=== PATIENT | female | born 1940 | race African-American/Black ===

== ENCOUNTER 2022-01-11 21:04 | Inpatient (IN) | payer OTHER, BC ==
[~2022-01-11] VITALS: Ht 167.6 cm; Wt 79.8 kg
[2022-01-11] MEDS ORDERED: MORPHINE SULFATE 4 MG/ML CPJ (NOT FOR IM USE) IV STA (23:14)
[2022-01-11] MEDS ORDERED: ONDANSETRON HCL 4MG/2ML INJ IV STA (23:14)
[2022-01-11] MEDS ORDERED: SODIUM CHLORIDE 0.9% 1,000 ML IV ONE (23:15)
[2022-01-11 23:52] LABS: HEMATOCRIT. 45.1 % (36.0-48.0); HEMOGLOBIN. 14.8 g/dL (12.0-16.0); MEAN CORPUSCULAR HEMOGLOBIN 28.1 pg (28.0-32.0); MEAN CORPUSCULAR VOLUME 85.5 fL (81.0-99.0); MEAN PLATELET VOLUME 9.3 fl (7.4-10.4); PLATELET 279 x1000/uL (130-400); RED BLOOD CELL COUNT 5.27 mill/uL (4.2-5.4); RED CELL DISTRIBUTION WIDTH 14.9 % (11.6-14.6)
[2022-01-12 00:02] LABS: CHLORIDE 96 mEq/L (98-107)
[2022-01-12 01:00] LABS: CLARITY URINE CLEAR (CLEAR); COLOR URINE YELLOW (YELLOW); KETONES URINE 4+ (NEGATIVE); LEUKOCYTE ESTERASE URINE NEGATIVE (NEGATIVE); NITRITE URINE NEGATIVE (NEGATIVE); OCCULT BLOOD URINE TRACE (NEGATIVE); PH URINE 5.5 (4.5-8.0); PROTEIN URINE TRACE (NEGATIVE); SPECIFIC GRAVITY URINE 1.028 (1.005-1.030); UROBILINOGEN URINE 0.2 E.U./dL (0.2-1.0)
[2022-01-12 01:03] LABS: PLATELET ESTIMATE NORMAL
[2022-01-12] MEDS ORDERED: PIPERACILLIN/TAZ 3.375G PREMIX 50 ML IV NR (02:45)
[2022-01-12] MEDS ORDERED: POTASSIUM CHLORIDE INJ 40 MEQ in DEXT 5% WATER 250 ML IV ONE (02:45)
[2022-01-12] MEDS: KCL 20MEQ/100ML X 2 FOR TOTAL KCL 40MEQ/200ML IV SCH ×2 (03:00→05:00)
[2022-01-12] MEDS ORDERED: MORPHINE SULFATE 4 MG/ML CPJ (NOT FOR IM USE) IV ONE (05:15)
[2022-01-12 10:30] VITALS: BP_SYST 180; BP_SYST 185; BP_DIAS 94
[2022-01-12] MEDS ORDERED: LOSA100T3 PO (11:07)
[2022-01-12] MEDS ORDERED: ONDANSETRON HCL 4MG/2ML INJ IV PRN (11:15)
[2022-01-12] MEDS ORDERED: AMLO10TA4 PO (11:15)
[2022-01-12] MEDS ORDERED: ACETAMINOPHEN 325MG TABLET PO PRN ×2 (11:15)
[2022-01-12] MEDS ORDERED: LORAZEPAM 0.5MG TABLET PO PRN (11:15)
[2022-01-12] MEDS ORDERED: LINA5TAB PO (11:17)
[2022-01-12 11:53] VITALS: BP 167/78
[2022-01-12] MEDS: ASPIRIN 81MG TABLET PO SCH (12:05)
[2022-01-12] MEDS: CLONIDINE 0.1MG TABLET PO PRN (12:06)
[2022-01-12] MEDS: AMLODIPINE 5MG TABLET PO SCH (12:06)
[2022-01-12] MEDS: MORPHINE SULFATE 2 MG/ML CPJ (NOT FOR IM USE) IV PRN ×3 (12:07→20:19)
[2022-01-12] MEDS: HYDROCODONE/ACETAMINOPHEN 5/325MG TABLET PO PRN (12:30)
[2022-01-12] MEDS: BLOOD SUGAR DIAGNOSTIC STRIP TEST SCH ×3 (12:52→20:19)
[2022-01-12] MEDS: INSULIN LISPRO 100 UNITS/ML SUBCUT SCH ×3 (13:44→20:28)
[2022-01-12] MEDS: PIPERACILLIN/TAZOBACTAM 3.375 G in DEXTROSE 5% WATER 50 ML IV SCH ×2 (15:33→19:53)
[2022-01-12] MEDS: SODIUM CHLORIDE 0.9% 1,000 ML IV SCH ×2 (15:33→20:28)
[2022-01-12 16:00] VITALS: BP 133/82
[2022-01-12] MEDS ORDERED: OMEG100017 PO (17:01)
[2022-01-12] MEDS ORDERED: VITA250012 PO (17:04)
[2022-01-12 20:00] VITALS: BP 150/84
[2022-01-12] MEDS ORDERED: NALOXONE HCL 0.4MG/ML VIAL IV PRN (22:45)
[2022-01-13] VITALS: BP 135/84
[2022-01-13] MEDS: PIPERACILLIN/TAZOBACTAM 3.375 G in DEXTROSE 5% WATER 50 ML IV SCH ×3 (02:17→21:25)
[2022-01-13] MEDS: MORPHINE SULFATE 2 MG/ML CPJ (NOT FOR IM USE) IV PRN ×2 (02:17→11:56)
[2022-01-13 04:00] VITALS: BP 157/90
[2022-01-13] MEDS: BLOOD SUGAR DIAGNOSTIC STRIP TEST SCH ×4 (05:20→21:15)
[2022-01-13] MEDS: INSULIN LISPRO 100 UNITS/ML SUBCUT SCH ×4 (05:26→21:29)
[2022-01-13 07:28] LABS: HEMATOCRIT. 45.2 % (36.0-48.0); HEMOGLOBIN. 14.9 g/dL (12.0-16.0); MEAN CORPUSCULAR VOLUME 85.1 fL (81.0-99.0); MEAN PLATELET VOLUME 10.3 fl (7.4-10.4); PLATELET 309 x1000/uL (130-400); RED BLOOD CELL COUNT 5.31 mill/uL (4.2-5.4); RED CELL DISTRIBUTION WIDTH 15.7 % (11.6-14.6)
[2022-01-13 08:21] VITALS: BP 148/87
[2022-01-13] MEDS: AMLODIPINE 5MG TABLET PO SCH (08:23)
[2022-01-13] MEDS: HYDROCODONE/ACETAMINOPHEN 5/325MG TABLET PO PRN (08:23)
[2022-01-13] MEDS: ASPIRIN 81MG TABLET PO SCH (08:23)
[2022-01-13 09:27] LABS: CHLORIDE 97 mEq/L (98-107)
[2022-01-13 10:16] LABS: PLATELET ESTIMATE NORMAL
[2022-01-13] MEDS ORDERED: POTASSIUM CHLORIDE 20MEQ TABLET SR PO NR (10:30)
[2022-01-13 12:30] VITALS: BP 142/88
[2022-01-13 12:45] LABS: PHOSPHORUS 2.2 mg/dL (2.5-4.9)
[2022-01-13] MEDS: HYDROCODONE/ACETAMINOPHEN 10/325MG TABLET PO PRN ×2 (14:50→23:17)
[2022-01-13] MEDS: SODIUM CHLORIDE 0.9% 1,000 ML IV SCH (14:51)
[2022-01-13 16:03] VITALS: BP 148/79
[2022-01-13] MEDS ORDERED: MAGNESIUM 4 G PREMIX 100 ML IV NR (17:00)
[2022-01-13 18:49] LABS: CARCINO EMBRYONIC ANTIGEN 2.3 ng/ml
[2022-01-13 20:00] VITALS: BP 189/72
[2022-01-13 20:44] LABS: TOTAL IRON BINDING CAPACITY 326 ug/dL (250-450)
[2022-01-13] MEDS: CLONIDINE 0.1MG TABLET PO PRN (21:25)
[2022-01-14] VITALS: BP 144/78
[2022-01-14] MEDS: PIPERACILLIN/TAZOBACTAM 3.375 G in DEXTROSE 5% WATER 50 ML IV SCH ×3 (02:14→21:09)
[2022-01-14] MEDS: HYDROCODONE/ACETAMINOPHEN 10/325MG TABLET PO PRN ×3 (03:35→19:28)
[2022-01-14 04:00] VITALS: BP 150/81
[2022-01-14] MEDS: SODIUM CHLORIDE 0.9% 1,000 ML IV SCH (05:10)
[2022-01-14] MEDS: BLOOD SUGAR DIAGNOSTIC STRIP TEST SCH ×4 (05:23→21:00)
[2022-01-14] MEDS: INSULIN LISPRO 100 UNITS/ML SUBCUT SCH ×4 (05:50→21:12)
[2022-01-14 07:43] LABS: HEMOGLOBIN. 14.9 g/dL (12.0-16.0); MEAN CORPUSCULAR HEMOGLOBIN 27.9 pg (28.0-32.0); MEAN CORPUSCULAR VOLUME 85.8 fL (81.0-99.0); PLATELET 267 x1000/uL (130-400); RED BLOOD CELL COUNT 5.36 mill/uL (4.2-5.4)
[2022-01-14 08:29] VITALS: BP 139/93
[2022-01-14] MEDS: ASPIRIN 81MG TABLET PO SCH (09:02)
[2022-01-14] MEDS: AMLODIPINE 5MG TABLET PO SCH (09:02)
[2022-01-14] MEDS ORDERED: LIDOCAINE HCL/PF 1% 10 MG/ML 5ML VIAL ONE (09:22)
[2022-01-14] MEDS ORDERED: TRAMADOL 50MG TABLET PO PRN (10:00)
[2022-01-14] MEDS ORDERED: PROCHLORPERAZINE 10MG/2ML VIAL IV PRN (10:00)
[2022-01-14 10:37] LABS: CHLORIDE 97 mEq/L (98-107)
[2022-01-14 12:00] VITALS: BP 166/96
[2022-01-14] MEDS ORDERED: POTASSIUM PHOS,M-BASIC-D-BASIC 20 MMOL in DEXT 5% WATER 243.3333 ML IV NR (13:00)
[2022-01-14] MEDS: IRON SUCROSE COMPLEX 100 MG/5 ML ML IV SCH (13:02)
[2022-01-14] MEDS: PANTOPRAZOLE SODIUM 40 MG/VIAL IV SCH (13:02)
[2022-01-14] MEDS: CLONIDINE 0.1MG TABLET PO PRN (14:49)
[2022-01-14 16:30] VITALS: BP 155/84
[2022-01-14] MEDS: POTASSIUM CHLORIDE INJ 40 MEQ in SODIUM CHLORIDE 0.9% 1,000 ML IV SCH (18:18)
[2022-01-14 20:00] VITALS: BP 155/88
[2022-01-15] VITALS: BP 168/75
[2022-01-15 04:00] VITALS: BP 155/60
[2022-01-15 04:12] LABS: OVA & PARASITE EXAM Final report (.)
[2022-01-15] MEDS: BLOOD SUGAR DIAGNOSTIC STRIP TEST SCH ×4 (05:15→20:56)
[2022-01-15] MEDS: PIPERACILLIN/TAZOBACTAM 3.375 G in DEXTROSE 5% WATER 50 ML IV SCH ×3 (05:15→18:51)
[2022-01-15] MEDS: POTASSIUM CHLORIDE INJ 40 MEQ in SODIUM CHLORIDE 0.9% 1,000 ML IV SCH ×2 (05:15→14:58)
[2022-01-15] MEDS: INSULIN LISPRO 100 UNITS/ML SUBCUT SCH ×4 (05:50→21:00)
[2022-01-15 07:05] LABS: HEMATOCRIT. 41.3 % (36.0-48.0); HEMOGLOBIN. 13.6 g/dL (12.0-16.0); MEAN CORPUSCULAR HEMOGLOBIN 28.6 pg (28.0-32.0); MEAN CORPUSCULAR VOLUME 86.7 fL (81.0-99.0); MEAN PLATELET VOLUME 10.1 fl (7.4-10.4); PLATELET 254 x1000/uL (130-400); RED BLOOD CELL COUNT 4.76 mill/uL (4.2-5.4); RED CELL DISTRIBUTION WIDTH 15.6 % (11.6-14.6)
[2022-01-15 07:13] LABS: CHLORIDE 99 mEq/L (98-107)
[2022-01-15 07:24] LABS: PHOSPHORUS 2.1 mg/dL (2.5-4.9)
[2022-01-15 08:04] VITALS: BP 168/83
[2022-01-15] MEDS: PANTOPRAZOLE SODIUM 40 MG/VIAL IV SCH (09:02)
[2022-01-15] MEDS: AMLODIPINE 5MG TABLET PO SCH (09:02)
[2022-01-15] MEDS: ASPIRIN 81MG TABLET PO SCH (09:02)
[2022-01-15] MEDS: HYDROCODONE/ACETAMINOPHEN 10/325MG TABLET PO PRN (09:11)
[2022-01-15 10:41] LABS: HEMATOCRIT. 42.5 % (36.0-48.0); HEMOGLOBIN. 13.8 g/dL (12.0-16.0); MEAN CORPUSCULAR HEMOGLOBIN 27.8 pg (28.0-32.0); MEAN CORPUSCULAR VOLUME 85.7 fL (81.0-99.0); MEAN PLATELET VOLUME 9.8 fl (7.4-10.4); PLATELET 235 x1000/uL (130-400); RED BLOOD CELL COUNT 4.96 mill/uL (4.2-5.4); RED CELL DISTRIBUTION WIDTH 15.2 % (11.6-14.6)
[2022-01-15 12:00] VITALS: BP 188/102
[2022-01-15] MEDS: CLONIDINE 0.1MG TABLET PO PRN (12:02)
[2022-01-15] MEDS: IRON SUCROSE COMPLEX 100 MG/5 ML ML IV SCH (12:03)
[2022-01-15 13:40] LABS: PLATELET ESTIMATE NORMAL
[2022-01-15] MEDS ORDERED: AMLODIPINE 5MG TABLET PO NR (13:45)
[2022-01-15 13:55] LABS: PLATELET ESTIMATE NORMAL
[2022-01-15 14:53] LABS: PLATELET ESTIMATE NORMAL
[2022-01-15] MEDS ORDERED: POTASSIUM PHOS,M-BASIC-D-BASIC 15 MMOL in DEXT 5% WATER 245 ML IV NR (15:00)
[2022-01-15 16:00] VITALS: BP 160/80
[2022-01-15 20:00] VITALS: BP 147/79
[2022-01-15] MEDS: HYDROMORPHONE HCL/PF 2MG/ML CPJ IV PRN (21:29)
[2022-01-16] VITALS: BP 152/89
[2022-01-16] MEDS: PIPERACILLIN/TAZOBACTAM 3.375 G in DEXTROSE 5% WATER 50 ML IV SCH ×3 (03:24→18:56)
[2022-01-16 04:00] VITALS: BP 149/97
[2022-01-16] MEDS: BLOOD SUGAR DIAGNOSTIC STRIP TEST SCH ×4 (05:36→21:00)
[2022-01-16] MEDS: INSULIN LISPRO 100 UNITS/ML SUBCUT SCH ×4 (05:36→21:46)
[2022-01-16 07:44] LABS: HEMATOCRIT. 41.1 % (36.0-48.0); HEMOGLOBIN. 13.2 g/dL (12.0-16.0); MEAN CORPUSCULAR VOLUME 87.2 fL (81.0-99.0); MEAN PLATELET VOLUME 9.8 fl (7.4-10.4); PLATELET 238 x1000/uL (130-400); RED BLOOD CELL COUNT 4.72 mill/uL (4.2-5.4); RED CELL DISTRIBUTION WIDTH 15.7 % (11.6-14.6)
[2022-01-16 08:00] VITALS: BP 170/81
[2022-01-16] MEDS: CLONIDINE 0.1MG TABLET PO PRN (08:55)
[2022-01-16] MEDS: POTASSIUM CHLORIDE INJ 40 MEQ in SODIUM CHLORIDE 0.9% 1,000 ML IV SCH (08:55)
[2022-01-16] MEDS: AMLODIPINE 10MG TABLET PO SCH (08:55)
[2022-01-16] MEDS: ASPIRIN 81MG TABLET PO SCH (08:55)
[2022-01-16] MEDS: HYDROCODONE/ACETAMINOPHEN 10/325MG TABLET PO PRN ×2 (08:56→13:39)
[2022-01-16] MEDS: PANTOPRAZOLE SODIUM 40 MG/VIAL IV SCH (08:56)
[2022-01-16 09:35] LABS: CHLORIDE 101 mEq/L (98-107)
[2022-01-16 09:38] LABS: PHOSPHORUS 2.1 mg/dL (2.5-4.9)
[2022-01-16 10:52] LABS: PLATELET ESTIMATE NORMAL
[2022-01-16] MEDS: IRON SUCROSE COMPLEX 100 MG/5 ML ML IV SCH (11:28)
[2022-01-16 12:00] VITALS: BP 158/85
[2022-01-16 16:00] VITALS: BP 130/79
[2022-01-16 20:00] VITALS: BP 147/85
[2022-01-17] VITALS: BP 130/76
[2022-01-17] MEDS: HYDROMORPHONE HCL/PF 2MG/ML CPJ IV PRN (01:42)
[2022-01-17] MEDS: PIPERACILLIN/TAZOBACTAM 3.375 G in DEXTROSE 5% WATER 50 ML IV SCH ×2 (03:15→13:38)
[2022-01-17] MEDS ORDERED: HALOPERIDOL LACTATE 5MG/ML VIAL IM PRN (03:45)
[2022-01-17 04:00] VITALS: BP 140/79
[2022-01-17 06:52] LABS: HEMATOCRIT. 40.3 % (36.0-48.0); HEMOGLOBIN. 12.9 g/dL (12.0-16.0); MEAN CORPUSCULAR HEMOGLOBIN 27.5 pg (28.0-32.0); MEAN CORPUSCULAR VOLUME 85.8 fL (81.0-99.0); MEAN PLATELET VOLUME 9.8 fl (7.4-10.4); PLATELET 244 x1000/uL (130-400); RED CELL DISTRIBUTION WIDTH 15.6 % (11.6-14.6)
[2022-01-17] MEDS: BLOOD SUGAR DIAGNOSTIC STRIP TEST SCH ×4 (07:10→21:53)
[2022-01-17] MEDS ORDERED: FERROUS SULFATE 325MG TABLET PO SCH (07:40)
[2022-01-17 08:27] VITALS: BP 142/52
[2022-01-17] MEDS ORDERED: LIDOCAINE HCL/PF 1% 10 MG/ML 5ML VIAL ONE ×2 (08:58→11:12)
[2022-01-17] MEDS: AMLODIPINE 10MG TABLET PO SCH (09:00)
[2022-01-17] MEDS: ASPIRIN 81MG TABLET PO SCH (09:00)
[2022-01-17] MEDS: INSULIN LISPRO 100 UNITS/ML SUBCUT SCH ×4 (09:30→22:05)
[2022-01-17] MEDS: IRON SUCROSE COMPLEX 100 MG/5 ML ML IV SCH (11:00)
[2022-01-17 11:06] LABS: CHLORIDE 102 mEq/L (98-107)
[2022-01-17 11:16] LABS: PHOSPHORUS 1.8 mg/dL (2.5-4.9)
[2022-01-17 11:34] LABS: PLATELET ESTIMATE NORMAL
[2022-01-17] MEDS ORDERED: IRON SUCROSE COMPLEX 100 MG/5 ML ML IV SCH (13:16)
[2022-01-17 13:37] VITALS: BP 133/76
[2022-01-17] MEDS: PANTOPRAZOLE SODIUM 40 MG/VIAL IV SCH (13:38)
[2022-01-17] MEDS: POTASSIUM CHLORIDE INJ 40 MEQ in SODIUM CHLORIDE 0.9% 1,000 ML IV SCH ×2 (13:39→13:40)
[2022-01-17 16:02] VITALS: BP 127/88
[2022-01-17 20:00] VITALS: BP 130/82
[2022-01-17] MEDS: CEFEPIME 2,000 MG in DEXT 5% WATER 100 ML IV SCH (21:39)
[2022-01-17] MEDS: METRONIDAZOLE 500 MG PREMIX 100 ML IV SCH (22:33)
[2022-01-18 00:01] VITALS: BP 128/60
[2022-01-18 04:00] VITALS: BP 124/74
[2022-01-18] MEDS: METRONIDAZOLE 500 MG PREMIX 100 ML IV SCH ×3 (05:43→22:29)
[2022-01-18] MEDS: INSULIN LISPRO 100 UNITS/ML SUBCUT SCH ×4 (06:24→21:34)
[2022-01-18] MEDS: BLOOD SUGAR DIAGNOSTIC STRIP TEST SCH ×4 (06:26→21:34)
[2022-01-18 06:57] LABS: HEMATOCRIT. 38.2 % (36.0-48.0); HEMOGLOBIN. 12.1 g/dL (12.0-16.0); MEAN CORPUSCULAR HEMOGLOBIN 27.4 pg (28.0-32.0); MEAN CORPUSCULAR VOLUME 86.3 fL (81.0-99.0); MEAN PLATELET VOLUME 9.6 fl (7.4-10.4); PLATELET 243 x1000/uL (130-400); RED BLOOD CELL COUNT 4.43 mill/uL (4.2-5.4); RED CELL DISTRIBUTION WIDTH 16.1 % (11.6-14.6)
[2022-01-18 08:21] VITALS: BP 138/80
[2022-01-18] MEDS ORDERED: ASCORBIC ACID 500 MG TABLET PO SCH (09:00)
[2022-01-18 10:45] LABS: PHOSPHORUS 2.1 mg/dL (2.5-4.9)
[2022-01-18] MEDS: CEFEPIME 2,000 MG in DEXT 5% WATER 100 ML IV SCH ×2 (10:46→21:33)
[2022-01-18] MEDS: PANTOPRAZOLE SODIUM 40 MG/VIAL IV SCH (10:47)
[2022-01-18 12:13] VITALS: BP 129/78
[2022-01-18] MEDS: POTASSIUM CHLORIDE INJ 40 MEQ in SODIUM CHLORIDE 0.9% 1,000 ML IV SCH ×2 (13:09→19:12)
[2022-01-18 14:41] LABS: NUCLEATED RED BLOOD CELLS 2 /100 WBC; PLATELET ESTIMATE NORMAL
[2022-01-18 15:53] LABS: BG BASE EXCESS -4.4 mmol/L (-2.0-2.0); BG CARBOXYHEMOGLOBIN 1.1 % (0.5-1.5); BG DEOXYHEMOGLOBIN 7.4 % (0.0-5.0); BG FRACTION INSPIRED OXYGEN 21; BG HCO3 ACT 19.2 mmol/L (22.0-26.0); BG METHEMOGLOBIN 0.2 % (0.0-1.5); BG OXYGEN SATURATION 92.5 % (92.0-98.5); BG OXYHEMOGLOBIN 91.3 % (94.0-97.0); BG PO2 63.4 mmHg (75.0-100.0); BG SAMPLE SITE RIGHT BRACHIAL; BG TOTAL HEMOGLOBIN 12.7 g/dL (12.0-18.0); BG VENT MODE ROOM AIR
[2022-01-18 16:00] VITALS: BP 133/78
[2022-01-18 16:28] LABS: CLARITY URINE CLOUDY (CLEAR); COLOR URINE YELLOW (YELLOW); KETONES URINE TRACE (NEGATIVE); LEUKOCYTE ESTERASE URINE NEGATIVE (NEGATIVE); NITRITE URINE NEGATIVE (NEGATIVE); OCCULT BLOOD URINE 2+ (NEGATIVE); PH URINE 5.5 (4.5-8.0); PROTEIN URINE 1+ (NEGATIVE); SPECIFIC GRAVITY URINE 1.023 (1.005-1.030); UROBILINOGEN URINE 0.2 E.U./dL (0.2-1.0)
[2022-01-18 20:00] VITALS: BP 133/74
[2022-01-18] MEDS ORDERED: NALOXONE HCL 0.4MG/ML VIAL IV PRN (23:45)
[2022-01-19] VITALS (8 sets, daily range): BP systolic 110–149; BP diastolic 37–75
[2022-01-19 05:24] LABS: HEMATOCRIT. 36.3 % (36.0-48.0); HEMOGLOBIN. 11.5 g/dL (12.0-16.0); MEAN CORPUSCULAR HEMOGLOBIN 27.3 pg (28.0-32.0); MEAN CORPUSCULAR VOLUME 86.4 fL (81.0-99.0); MEAN PLATELET VOLUME 9.2 fl (7.4-10.4); PLATELET 209 x1000/uL (130-400); RED CELL DISTRIBUTION WIDTH 16.4 % (11.6-14.6)
[2022-01-19] MEDS: METRONIDAZOLE 500 MG PREMIX 100 ML IV SCH ×3 (06:03→21:29)
[2022-01-19] MEDS: BLOOD SUGAR DIAGNOSTIC STRIP TEST SCH ×4 (06:13→21:00)
[2022-01-19] MEDS: INSULIN LISPRO 100 UNITS/ML SUBCUT SCH ×4 (06:22→21:29)
[2022-01-19 07:12] LABS: PLATELET ESTIMATE NORMAL
[2022-01-19] MEDS: CEFEPIME 2,000 MG in DEXT 5% WATER 100 ML IV SCH ×2 (09:37→21:29)
[2022-01-19] MEDS: FAMOTIDINE 20MG/2ML VIAL IV SCH (09:37)
[2022-01-19] MEDS: DEXT 5% WATER + KCL 20MEQ/L 1,000 ML IV SCH (11:52)
[2022-01-19] MEDS: IPRATROPIUM/ALBUTEROL 0.5-3(2.5)MG/3ML NEB HHN PRN (12:51)
[2022-01-19] MEDS: ENOXAPARIN 30MG/0.3ML SYR SUBCUT SCH (17:06)
[2022-01-19] MEDS: IPRATROPIUM/ALBUTEROL 0.5-3(2.5)MG/3ML NEB HHN SCH (21:24)
[2022-01-20] VITALS (10 sets, daily range): BP systolic 125–154; BP diastolic 42–84
[2022-01-20] MEDS: IPRATROPIUM/ALBUTEROL 0.5-3(2.5)MG/3ML NEB HHN SCH ×3 (02:16→16:20)
[2022-01-20 05:07] LABS: HEMATOCRIT. 37.1 % (36.0-48.0); HEMOGLOBIN. 11.7 g/dL (12.0-16.0); MEAN CORPUSCULAR HEMOGLOBIN 27.3 pg (28.0-32.0); MEAN CORPUSCULAR VOLUME 86.4 fL (81.0-99.0); PLATELET 161 x1000/uL (130-400); RED BLOOD CELL COUNT 4.29 mill/uL (4.2-5.4); RED CELL DISTRIBUTION WIDTH 16.5 % (11.6-14.6)
[2022-01-20 05:22] LABS: PHOSPHORUS 1.6 mg/dL (2.5-4.9)
[2022-01-20] MEDS: DEXT 5% WATER + KCL 20MEQ/L 1,000 ML IV SCH ×2 (05:34→16:50)
[2022-01-20] MEDS: METRONIDAZOLE 500 MG PREMIX 100 ML IV SCH ×3 (05:34→22:24)
[2022-01-20] MEDS: BLOOD SUGAR DIAGNOSTIC STRIP TEST SCH ×4 (07:30→21:00)
[2022-01-20] MEDS: FAMOTIDINE 20MG/2ML VIAL IV SCH (08:56)
[2022-01-20] MEDS: CEFEPIME 2,000 MG in DEXT 5% WATER 100 ML IV SCH ×2 (08:57→22:24)
[2022-01-20] MEDS: INSULIN LISPRO 100 UNITS/ML SUBCUT SCH ×4 (09:22→22:38)
[2022-01-20] MEDS ORDERED: POTASSIUM PHOS,M-BASIC-D-BASIC 20 MMOL in DEXT 5% WATER 243.3333 ML IV NR (11:00)
[2022-01-20] MEDS ORDERED: MENTHOL/LANOLIN/CALAMINE/ZN OX OINT 71GM TOP PRN (18:00)
[2022-01-20] MEDS: ENOXAPARIN 30MG/0.3ML SYR SUBCUT SCH (18:26)
[2022-01-20 20:07] LABS: PLATELET ESTIMATE NORMAL
[2022-01-21] VITALS (9 sets, daily range): BP systolic 123–141; BP diastolic 49–73
[2022-01-21] MEDS: DEXT 5% WATER + KCL 20MEQ/L 1,000 ML IV SCH (01:03)
[2022-01-21] MEDS: IPRATROPIUM/ALBUTEROL 0.5-3(2.5)MG/3ML NEB HHN SCH ×4 (01:38→20:51)
[2022-01-21 05:51] LABS: HEMATOCRIT. 36.6 % (36.0-48.0); HEMOGLOBIN. 11.8 g/dL (12.0-16.0); MEAN CORPUSCULAR HEMOGLOBIN 27.7 pg (28.0-32.0); MEAN CORPUSCULAR VOLUME 86.3 fL (81.0-99.0); MEAN PLATELET VOLUME 9.9 fl (7.4-10.4); PLATELET 174 x1000/uL (130-400); RED BLOOD CELL COUNT 4.25 mill/uL (4.2-5.4); RED CELL DISTRIBUTION WIDTH 16.5 % (11.6-14.6)
[2022-01-21] MEDS: METRONIDAZOLE 500 MG PREMIX 100 ML IV SCH ×3 (06:51→21:59)
[2022-01-21] MEDS: BLOOD SUGAR DIAGNOSTIC STRIP TEST SCH ×4 (06:52→23:59)
[2022-01-21 07:32] LABS: CHLORIDE 125 mEq/L (98-107)
[2022-01-21 07:45] LABS: CREATINE KINASE 73 IU/L (26-192); PHOSPHORUS 1.5 mg/dL (2.5-4.9)
[2022-01-21] MEDS: FAMOTIDINE 20MG/2ML VIAL IV SCH (08:21)
[2022-01-21] MEDS: DEXTROSE 5% WATER 1,000 ML IV SCH ×2 (08:21→22:00)
[2022-01-21] MEDS: CEFEPIME 2,000 MG in DEXT 5% WATER 100 ML IV SCH ×2 (08:21→21:59)
[2022-01-21] MEDS: INSULIN LISPRO 100 UNITS/ML SUBCUT SCH ×3 (08:22→17:44)
[2022-01-21 09:07] LABS: ANTI-NUCLEAR ANTIBODIES DIRECT Negative (Negative)
[2022-01-21] MEDS ORDERED: POTASSIUM PHOS,M-BASIC-D-BASIC 30 MMOL in SODIUM CHLORIDE 0.9% 500 ML IV NR (09:30)
[2022-01-21 13:36] LABS: PLATELET ESTIMATE NORMAL
[2022-01-21] MEDS: ENOXAPARIN 30MG/0.3ML SYR SUBCUT SCH (14:04)
[2022-01-22] VITALS (12 sets, daily range): BP systolic 109–149; BP diastolic 58–76
[2022-01-22] MEDS: INSULIN LISPRO 100 UNITS/ML SUBCUT SCH ×4 (01:02→17:47)
[2022-01-22] MEDS: DEXTROSE 5% WATER 1,000 ML IV SCH ×2 (04:00→13:48)
[2022-01-22] MEDS: BLOOD SUGAR DIAGNOSTIC STRIP TEST SCH ×3 (06:00→17:38)
[2022-01-22] MEDS: METRONIDAZOLE 500 MG PREMIX 100 ML IV SCH ×2 (07:44→13:48)
[2022-01-22] MEDS: CEFEPIME 2,000 MG in DEXT 5% WATER 100 ML IV SCH (08:30)
[2022-01-22] MEDS: FAMOTIDINE 20MG/2ML VIAL IV SCH (08:30)
[2022-01-22 09:17] LABS: HEMATOCRIT. 34.5 % (36.0-48.0); HEMOGLOBIN. 11.1 g/dL (12.0-16.0); MEAN PLATELET VOLUME 9.7 fl (7.4-10.4); PLATELET 148 x1000/uL (130-400); RED BLOOD CELL COUNT 3.96 mill/uL (4.2-5.4); RED CELL DISTRIBUTION WIDTH 16.7 % (11.6-14.6)
[2022-01-22 09:30] LABS: CHLORIDE 126 mEq/L (98-107)
[2022-01-22] MEDS ORDERED: POTASSIUM CHLORIDE INJ 40 MEQ in DEXT 5% WATER 250 ML IV ONE (09:45)
[2022-01-22] MEDS: IPRATROPIUM/ALBUTEROL 0.5-3(2.5)MG/3ML NEB HHN SCH ×3 (09:58→21:13)
[2022-01-22 10:04] LABS: CREATINE KINASE 119 IU/L (26-192); PHOSPHORUS 2.3 mg/dL (2.5-4.9)
[2022-01-22] MEDS: KCL 20MEQ/100ML X 2 FOR TOTAL KCL 40MEQ/200ML IV SCH ×2 (11:28→13:48)
[2022-01-22 12:27] LABS: PLATELET ESTIMATE NORMAL
[2022-01-22] MEDS: ENOXAPARIN 30MG/0.3ML SYR SUBCUT SCH (13:48)
[2022-01-23] VITALS (7 sets, daily range): BP systolic 116–142; BP diastolic 53–78
[2022-01-23] MEDS: METRONIDAZOLE 500 MG PREMIX 100 ML IV SCH ×2 (00:52→13:34)
[2022-01-23] MEDS: CEFEPIME 2,000 MG in DEXT 5% WATER 100 ML IV SCH ×2 (00:52→13:33)
[2022-01-23] MEDS: INSULIN GLARGINE 100 UNITS/ML SUBCUT SCH ×2 (00:54→10:00)
[2022-01-23] MEDS: INSULIN LISPRO 100 UNITS/ML SUBCUT SCH ×4 (01:02→18:40)
[2022-01-23] MEDS: IPRATROPIUM/ALBUTEROL 0.5-3(2.5)MG/3ML NEB HHN SCH ×4 (02:50→20:31)
[2022-01-23 04:11] LABS: HEMATOCRIT. 33.1 % (36.0-48.0); HEMOGLOBIN. 10.5 g/dL (12.0-16.0); MEAN CORPUSCULAR HEMOGLOBIN 27.6 pg (28.0-32.0); MEAN CORPUSCULAR VOLUME 86.7 fL (81.0-99.0); MEAN PLATELET VOLUME 10.2 fl (7.4-10.4); PLATELET 149 x1000/uL (130-400); RED BLOOD CELL COUNT 3.81 mill/uL (4.2-5.4); RED CELL DISTRIBUTION WIDTH 17.6 % (11.6-14.6)
[2022-01-23 04:37] LABS: CHLORIDE 125 mEq/L (98-107)
[2022-01-23 04:44] LABS: CREATINE KINASE 72 IU/L (26-192); PHOSPHORUS 1.8 mg/dL (2.5-4.9)
[2022-01-23 04:48] LABS: INR 1.2; PROTHROMBIN TIME 12.9 sec (9.6-11.0)
[2022-01-23] MEDS: BLOOD SUGAR DIAGNOSTIC STRIP TEST SCH ×4 (06:00→18:12)
[2022-01-23] MEDS ORDERED: POTASSIUM PHOS,M-BASIC-D-BASIC 30 MMOL in SODIUM CHLORIDE 0.9% 500 ML IV NR (06:00)
[2022-01-23] MEDS ORDERED: DEXTROSE 5% WATER 1,000 ML IV SCH (10:30)
[2022-01-23] MEDS: FAMOTIDINE 20MG/2ML VIAL IV SCH (11:27)
[2022-01-23] MEDS: ENOXAPARIN 40MG/0.4ML SYR SUBCUT SCH (11:30)
[2022-01-23 15:40] LABS: PLATELET ESTIMATE NORMAL
[2022-01-23] MEDS ORDERED: TOTAL PARENTERAL NUTRITION 1,200 ML IV SCH (21:00)
[2022-01-23] MEDS: DEXTROSE 5% WATER 1,000 ML IV SCH ×2 (23:17)
[2022-01-24] VITALS (11 sets, daily range): BP systolic 126–161; BP diastolic 63–86
[2022-01-24] MEDS: METRONIDAZOLE 500 MG PREMIX 100 ML IV SCH ×4 (00:21→20:54)
[2022-01-24] MEDS: INSULIN GLARGINE 100 UNITS/ML SUBCUT SCH ×3 (00:24→23:29)
[2022-01-24] MEDS: CEFEPIME 2,000 MG in DEXT 5% WATER 100 ML IV SCH ×2 (00:33→00:35)
[2022-01-24] MEDS: INSULIN LISPRO 100 UNITS/ML SUBCUT SCH ×4 (00:38→18:10)
[2022-01-24] MEDS: BLOOD SUGAR DIAGNOSTIC STRIP TEST SCH ×4 (00:38→18:15)
[2022-01-24] MEDS: IPRATROPIUM/ALBUTEROL 0.5-3(2.5)MG/3ML NEB HHN SCH ×3 (01:22→21:19)
[2022-01-24] MEDS: DEXTROSE 5% WATER 1,000 ML IV SCH ×2 (01:30→12:16)
[2022-01-24 07:26] LABS: HEMATOCRIT. 31.5 % (36.0-48.0); MEAN CORPUSCULAR HEMOGLOBIN 27.9 pg (28.0-32.0); MEAN CORPUSCULAR VOLUME 87.8 fL (81.0-99.0); MEAN PLATELET VOLUME 10.1 fl (7.4-10.4); PLATELET 79 x1000/uL (130-400); RED BLOOD CELL COUNT 3.58 mill/uL (4.2-5.4); RED CELL DISTRIBUTION WIDTH 17.1 % (11.6-14.6)
[2022-01-24] MEDS: ENOXAPARIN 40MG/0.4ML SYR SUBCUT SCH (08:50)
[2022-01-24] MEDS: FAMOTIDINE 20MG/2ML VIAL IV SCH (08:50)
[2022-01-24] MEDS: IPRATROPIUM/ALBUTEROL 0.5-3(2.5)MG/3ML NEB HHN PRN (13:57)
[2022-01-24 18:47] LABS: CHLORIDE 99 mEq/L (98-107)
[2022-01-24 18:59] LABS: CREATINE KINASE 40 IU/L (26-192)
[2022-01-24] MEDS ORDERED: SODIUM CHLORIDE 0.45% 1,000 ML IV SCH (19:30)
[2022-01-24 20:30] LABS: CHLORIDE 127 mEq/L (98-107)
[2022-01-24] MEDS ORDERED: FAT EMULSIONS 500 ML IV SCH (21:00)
[2022-01-25] VITALS (10 sets, daily range): BP systolic 149–168; BP diastolic 62–74
[2022-01-25] MEDS: CEFEPIME 2,000 MG in DEXT 5% WATER 100 ML IV SCH ×3 (00:45→23:44)
[2022-01-25] MEDS: INSULIN LISPRO 100 UNITS/ML SUBCUT SCH ×5 (00:46→23:40)
[2022-01-25] MEDS: IPRATROPIUM/ALBUTEROL 0.5-3(2.5)MG/3ML NEB HHN SCH ×4 (01:40→21:31)
[2022-01-25] MEDS: BLOOD SUGAR DIAGNOSTIC STRIP TEST SCH ×5 (05:04→23:40)
[2022-01-25] MEDS: METRONIDAZOLE 500 MG PREMIX 100 ML IV SCH ×3 (05:10→21:20)
[2022-01-25 07:25] LABS: HEMATOCRIT. 32.7 % (36.0-48.0); HEMOGLOBIN. 10.3 g/dL (12.0-16.0); MEAN CORPUSCULAR HEMOGLOBIN 28.6 pg (28.0-32.0); MEAN CORPUSCULAR VOLUME 90.6 fL (81.0-99.0); MEAN PLATELET VOLUME 10.7 fl (7.4-10.4); PLATELET 147 x1000/uL (130-400); RED BLOOD CELL COUNT 3.61 mill/uL (4.2-5.4); RED CELL DISTRIBUTION WIDTH 17.9 % (11.6-14.6)
[2022-01-25] MEDS: FAMOTIDINE 20MG/2ML VIAL IV SCH (08:56)
[2022-01-25 10:10] LABS: PLATELET ESTIMATE DECREASED
[2022-01-25] MEDS: INSULIN GLARGINE 100 UNITS/ML SUBCUT SCH ×2 (10:28→23:41)
[2022-01-25 12:47] LABS: CHLORIDE 128 mEq/L (98-107)
[2022-01-25 12:58] LABS: CREATINE KINASE 45 IU/L (26-192); PHOSPHORUS 1.1 mg/dL (2.5-4.9)
[2022-01-25] MEDS: TOTAL PARENTERAL NUTRITION 1,440 ML IV SCH (21:13)
[2022-01-26] VITALS (12 sets, daily range): BP systolic 137–168; BP diastolic 54–79
[2022-01-26] MEDS: IPRATROPIUM/ALBUTEROL 0.5-3(2.5)MG/3ML NEB HHN SCH ×4 (02:40→20:06)
[2022-01-26] MEDS: METRONIDAZOLE 500 MG PREMIX 100 ML IV SCH ×3 (04:58→21:12)
[2022-01-26] MEDS: BLOOD SUGAR DIAGNOSTIC STRIP TEST SCH ×4 (05:08→23:14)
[2022-01-26] MEDS: INSULIN LISPRO 100 UNITS/ML SUBCUT SCH ×4 (05:09→23:15)
[2022-01-26 06:32] LABS: HEMATOCRIT. 33.2 % (36.0-48.0); HEMOGLOBIN. 10.7 g/dL (12.0-16.0); MEAN CORPUSCULAR HEMOGLOBIN 28.1 pg (28.0-32.0); MEAN CORPUSCULAR VOLUME 87.4 fL (81.0-99.0); MEAN PLATELET VOLUME 10.8 fl (7.4-10.4); PLATELET 149 x1000/uL (130-400)
[2022-01-26 06:58] LABS: CHLORIDE 129 mEq/L (98-107)
[2022-01-26 07:06] LABS: CREATINE KINASE 70 IU/L (26-192)
[2022-01-26] MEDS ORDERED: POTASSIUM CHLORIDE INJ 40 MEQ in DEXT 5% WATER 250 ML IV ONE (07:15)
[2022-01-26] MEDS: ENOXAPARIN 40MG/0.4ML SYR SUBCUT SCH (08:30)
[2022-01-26] MEDS: FAMOTIDINE 20MG/2ML VIAL IV SCH (08:30)
[2022-01-26] MEDS: KCL 20MEQ/100ML X 2 FOR TOTAL KCL 40MEQ/200ML IV SCH ×2 (08:50→12:35)
[2022-01-26] MEDS: INSULIN GLARGINE 100 UNITS/ML SUBCUT SCH ×2 (09:00→23:10)
[2022-01-26] MEDS ORDERED: [UNRECOGNIZED DRUG - REMARK] XX SCH (11:30)
[2022-01-26] MEDS: CEFEPIME 2,000 MG in DEXT 5% WATER 100 ML IV SCH ×2 (12:35→23:16)
[2022-01-26] MEDS ORDERED: LIDOCAINE HCL 1% 30ML VIAL (10MG/ML) ONE (13:16)
[2022-01-26] MEDS ORDERED: FAT EMULSIONS 250 ML IV SCH (21:00)
[2022-01-26] MEDS: TOTAL PARENTERAL NUTRITION 1,440 ML IV SCH (23:09)
[2022-01-27] VITALS (14 sets, daily range): BP systolic 142–170; BP diastolic 65–85
[2022-01-27] MEDS: IPRATROPIUM/ALBUTEROL 0.5-3(2.5)MG/3ML NEB HHN SCH ×2 (01:15→08:18)
[2022-01-27] MEDS: METRONIDAZOLE 500 MG PREMIX 100 ML IV SCH ×3 (04:56→22:56)
[2022-01-27] MEDS: BLOOD SUGAR DIAGNOSTIC STRIP TEST SCH ×4 (05:01→23:35)
[2022-01-27] MEDS: INSULIN LISPRO 100 UNITS/ML SUBCUT SCH ×4 (05:09→23:46)
[2022-01-27 05:16] LABS: CHLORIDE 129 mEq/L (98-107)
[2022-01-27 05:24] LABS: CREATINE KINASE 45 IU/L (26-192); PHOSPHORUS 1.5 mg/dL (2.5-4.9)
[2022-01-27 06:19] LABS: HEMATOCRIT. 32.1 % (36.0-48.0); HEMOGLOBIN. 10.2 g/dL (12.0-16.0); MEAN CORPUSCULAR HEMOGLOBIN 27.9 pg (28.0-32.0); MEAN CORPUSCULAR VOLUME 87.7 fL (81.0-99.0); MEAN PLATELET VOLUME 10.3 fl (7.4-10.4); PLATELET 137 x1000/uL (130-400); RED BLOOD CELL COUNT 3.66 mill/uL (4.2-5.4)
[2022-01-27 07:23] LABS: PLATELET ESTIMATE NORMAL
[2022-01-27] MEDS: INSULIN GLARGINE 100 UNITS/ML SUBCUT SCH ×2 (09:41→23:47)
[2022-01-27] MEDS: FAMOTIDINE 20MG/2ML VIAL IV SCH (09:42)
[2022-01-27] MEDS: ENOXAPARIN 40MG/0.4ML SYR SUBCUT SCH (09:42)
[2022-01-27] MEDS ORDERED: POTASSIUM PHOS,M-BASIC-D-BASIC 30 MMOL in DEXT 5% WATER 500 ML IV NR (10:00)
[2022-01-27 10:46] LABS: PLATELET ESTIMATE NORMAL
[2022-01-27] MEDS: CEFEPIME 2,000 MG in DEXT 5% WATER 100 ML IV SCH ×2 (11:03→11:13)
[2022-01-27] MEDS: DESMOPRESSIN ACETATE 4MCG/ML AMP IV SCH ×2 (11:24→22:56)
[2022-01-27] MEDS: TOTAL PARENTERAL NUTRITION 1,440 ML IV SCH (22:57)
[2022-01-28] VITALS (13 sets, daily range): BP systolic 143–169; BP diastolic 53–99
[2022-01-28] MEDS: BLOOD SUGAR DIAGNOSTIC STRIP TEST SCH ×3 (05:46→18:14)
[2022-01-28] MEDS: INSULIN LISPRO 100 UNITS/ML SUBCUT SCH ×3 (05:46→18:00)
[2022-01-28] MEDS: METRONIDAZOLE 500 MG PREMIX 100 ML IV SCH ×3 (05:46→22:00)
[2022-01-28 06:41] LABS: HEMATOCRIT. 33.7 % (36.0-48.0); HEMOGLOBIN. 10.7 g/dL (12.0-16.0); MEAN CORPUSCULAR HEMOGLOBIN 28.1 pg (28.0-32.0); MEAN CORPUSCULAR VOLUME 88.6 fL (81.0-99.0); MEAN PLATELET VOLUME 10.8 fl (7.4-10.4); RED CELL DISTRIBUTION WIDTH 17.4 % (11.6-14.6)
[2022-01-28 08:20] LABS: NUCLEATED RED BLOOD CELLS 1 /100 WBC; PLATELET ESTIMATE NORMAL
[2022-01-28] MEDS: FAMOTIDINE 20MG/2ML VIAL IV SCH (09:19)
[2022-01-28] MEDS: DESMOPRESSIN ACETATE 4MCG/ML AMP IV SCH ×2 (09:19→21:00)
[2022-01-28] MEDS: ENOXAPARIN 40MG/0.4ML SYR SUBCUT SCH (09:19)
[2022-01-28 10:01] LABS: CHLORIDE 124 mEq/L (98-107)
[2022-01-28 10:12] LABS: CREATINE KINASE 91 IU/L (26-192); PHOSPHORUS 2.1 mg/dL (2.5-4.9)
[2022-01-28] MEDS: INSULIN GLARGINE 100 UNITS/ML SUBCUT SCH (10:20)
[2022-01-28] MEDS: CEFEPIME 2,000 MG in DEXT 5% WATER 100 ML IV SCH (11:43)
[2022-01-28] MEDS ORDERED: ZINC OXIDE 20% OINT 30GM TOP PRN (12:00)
[2022-01-28] MEDS ORDERED: HYDRALAZINE 20MG/ML VIAL IV PRN (15:45)
[2022-01-28 15:59] LABS: PLATELET ESTIMATE DECREASED
[2022-01-28 16:00] LABS: PLATELET 87 x1000/uL (130-400)
[2022-01-28] MEDS ORDERED: MAGNESIUM 4 G PREMIX 100 ML IV ONE (17:00)
[2022-01-28] MEDS ORDERED: POTASSIUM PHOS,M-BASIC-D-BASIC 30 MMOL in DEXT 5% WATER 500 ML IV ONE (18:00)
[2022-01-29] VITALS (10 sets, daily range): BP systolic 141–177; BP diastolic 53–90
[2022-01-29] MEDS: TOTAL PARENTERAL NUTRITION 1,440 ML IV SCH ×2 (01:29→21:00)
[2022-01-29] MEDS: INSULIN GLARGINE 100 UNITS/ML SUBCUT SCH ×3 (01:41→23:34)
[2022-01-29] MEDS: CEFEPIME 2,000 MG in DEXT 5% WATER 100 ML IV SCH ×2 (01:42→11:43)
[2022-01-29] MEDS: BLOOD SUGAR DIAGNOSTIC STRIP TEST SCH ×4 (06:53→17:41)
[2022-01-29] MEDS: INSULIN LISPRO 100 UNITS/ML SUBCUT SCH ×4 (07:07→17:41)
[2022-01-29] MEDS: METRONIDAZOLE 500 MG PREMIX 100 ML IV SCH ×3 (07:26→23:31)
[2022-01-29] MEDS: FAMOTIDINE 20MG/2ML VIAL IV SCH (08:42)
[2022-01-29] MEDS: DESMOPRESSIN ACETATE 4MCG/ML AMP IV SCH ×2 (09:56→21:00)
[2022-01-29 18:48] LABS: CHLORIDE 126 mEq/L (98-107)
[2022-01-29] MEDS: DEXTROSE 5% IV SCH (21:00)
[2022-01-29] MEDS: THIAMINE HCL IV SCH (21:00)
[2022-01-29] MEDS: WATER IV SCH (21:00)
[2022-01-29 23:27] LABS: BASOPHILS % 0.3 % (0.0-2.0); EOSINOPHILS % 0.9 % (0.0-5.0); HEMATOCRIT. 32.1 % (36.0-48.0); HEMOGLOBIN. 10.2 g/dL (12.0-16.0); LYMPHOCYTES % 7.2 % (20.0-50.0); MEAN CORPUSCULAR HEMOGLOBIN 28.2 pg (28.0-32.0); MEAN CORPUSCULAR VOLUME 89.2 fL (81.0-99.0); MEAN PLATELET VOLUME 10.5 fl (7.4-10.4); MONOCYTES % 6.1 % (2.0-8.0); NEUTROPHILS % 85.5 % (40.0-76.0); PLATELET 103 x1000/uL (130-400); RED CELL DISTRIBUTION WIDTH 17.5 % (11.6-14.6)
[2022-01-30] VITALS (8 sets, daily range): BP systolic 148–170; BP diastolic 77–97
[2022-01-30] MEDS: BLOOD SUGAR DIAGNOSTIC STRIP TEST SCH ×5 (00:52→23:36)
[2022-01-30] MEDS: CEFEPIME 2,000 MG in DEXT 5% WATER 100 ML IV SCH ×2 (00:54→12:40)
[2022-01-30] MEDS: INSULIN LISPRO 100 UNITS/ML SUBCUT SCH ×5 (06:00→23:35)
[2022-01-30] MEDS: METRONIDAZOLE 500 MG PREMIX 100 ML IV SCH ×4 (06:00→21:05)
[2022-01-30 06:06] LABS: BASOPHILS % 0.4 % (0.0-2.0); EOSINOPHILS % 0.8 % (0.0-5.0); HEMATOCRIT. 32.2 % (36.0-48.0); HEMOGLOBIN. 10.2 g/dL (12.0-16.0); LYMPHOCYTES % 7.9 % (20.0-50.0); MEAN CORPUSCULAR HEMOGLOBIN 28.2 pg (28.0-32.0); MEAN CORPUSCULAR VOLUME 89.2 fL (81.0-99.0); MEAN PLATELET VOLUME 11.3 fl (7.4-10.4); MONOCYTES % 5.5 % (2.0-8.0); NEUTROPHILS % 85.4 % (40.0-76.0); PLATELET 109 x1000/uL (130-400); RED BLOOD CELL COUNT 3.61 mill/uL (4.2-5.4); RED CELL DISTRIBUTION WIDTH 17.6 % (11.6-14.6)
[2022-01-30 07:49] LABS: CHLORIDE 120 mEq/L (98-107)
[2022-01-30] MEDS: FAMOTIDINE 20MG/2ML VIAL IV SCH (10:15)
[2022-01-30] MEDS: DESMOPRESSIN ACETATE 4MCG/ML AMP IV SCH ×2 (10:15→21:05)
[2022-01-30] MEDS: INSULIN GLARGINE 100 UNITS/ML SUBCUT SCH ×2 (10:16→23:36)
[2022-01-30] MEDS ORDERED: POTASSIUM CHLORIDE INJ 40 MEQ in DEXT 5% WATER 250 ML IV ONE (11:15)
[2022-01-30] MEDS: KCL 20MEQ/100ML X 2 FOR TOTAL KCL 40MEQ/200ML IV SCH ×2 (12:42→15:56)
[2022-01-30] MEDS: WATER IV SCH (21:04)
[2022-01-30] MEDS: THIAMINE HCL IV SCH (21:04)
[2022-01-30] MEDS: DEXTROSE 5% IV SCH (21:04)
[2022-01-30] MEDS: TOTAL PARENTERAL NUTRITION 1,440 ML IV SCH (21:06)
[2022-01-31] VITALS (12 sets, daily range): BP systolic 138–172; BP diastolic 63–93
[2022-01-31] MEDS: INSULIN LISPRO 100 UNITS/ML SUBCUT SCH ×4 (06:00→23:16)
[2022-01-31 06:39] LABS: BASOPHILS % 0.6 % (0.0-2.0); EOSINOPHILS % 0.8 % (0.0-5.0); HEMATOCRIT. 31.7 % (36.0-48.0); HEMOGLOBIN. 10.2 g/dL (12.0-16.0); LYMPHOCYTES % 7.4 % (20.0-50.0); MEAN CORPUSCULAR HEMOGLOBIN 28.3 pg (28.0-32.0); MEAN CORPUSCULAR VOLUME 88.6 fL (81.0-99.0); MEAN PLATELET VOLUME 11.5 fl (7.4-10.4); MONOCYTES % 6.1 % (2.0-8.0); NEUTROPHILS % 85.1 % (40.0-76.0); PLATELET 115 x1000/uL (130-400); RED BLOOD CELL COUNT 3.58 mill/uL (4.2-5.4); RED CELL DISTRIBUTION WIDTH 17.8 % (11.6-14.6)
[2022-01-31] MEDS: BLOOD SUGAR DIAGNOSTIC STRIP TEST SCH ×4 (06:53→23:08)
[2022-01-31 08:14] LABS: CHLORIDE 122 mEq/L (98-107)
[2022-01-31 08:32] LABS: PHOSPHORUS 2.3 mg/dL (2.5-4.9)
[2022-01-31] MEDS ORDERED: POTASSIUM CHLORIDE INJ 40 MEQ in DEXT 5% WATER 250 ML IV ONE (08:45)
[2022-01-31] MEDS: ENOXAPARIN 40MG/0.4ML SYR SUBCUT SCH (09:29)
[2022-01-31] MEDS: DESMOPRESSIN ACETATE 4MCG/ML AMP IV SCH ×2 (09:29→21:06)
[2022-01-31] MEDS: FAMOTIDINE 20MG/2ML VIAL IV SCH (09:29)
[2022-01-31] MEDS: KCL 20MEQ/100ML X 2 FOR TOTAL KCL 40MEQ/200ML IV SCH ×2 (09:30→11:22)
[2022-01-31] MEDS: INSULIN GLARGINE 100 UNITS/ML SUBCUT SCH ×2 (09:31→23:15)
[2022-01-31] MEDS: DEXTROSE 5% IV SCH (21:06)
[2022-01-31] MEDS: WATER IV SCH (21:06)
[2022-01-31] MEDS: FAT EMULSIONS 250 ML IV SCH (21:06)
[2022-01-31] MEDS: THIAMINE HCL IV SCH (21:06)
[2022-01-31] MEDS: TOTAL PARENTERAL NUTRITION 1,440 ML IV SCH (21:07)
[2022-02-01] VITALS (12 sets, daily range): BP systolic 141–166; BP diastolic 62–93
[2022-02-01] MEDS: BLOOD SUGAR DIAGNOSTIC STRIP TEST SCH ×3 (05:21→23:44)
[2022-02-01 05:53] LABS: BASOPHILS % 0.6 % (0.0-2.0); HEMATOCRIT. 33.7 % (36.0-48.0); HEMOGLOBIN. 11.1 g/dL (12.0-16.0); LYMPHOCYTES % 7.7 % (20.0-50.0); MEAN CORPUSCULAR HEMOGLOBIN 29.2 pg (28.0-32.0); MEAN CORPUSCULAR VOLUME 89.1 fL (81.0-99.0); MEAN PLATELET VOLUME 10.8 fl (7.4-10.4); MONOCYTES % 3.8 % (2.0-8.0); NEUTROPHILS % 86.9 % (40.0-76.0); PLATELET 114 x1000/uL (130-400); RED BLOOD CELL COUNT 3.79 mill/uL (4.2-5.4); RED CELL DISTRIBUTION WIDTH 18.4 % (11.6-14.6)
[2022-02-01] MEDS: INSULIN LISPRO 100 UNITS/ML SUBCUT SCH ×3 (05:55→23:44)
[2022-02-01] MEDS: FAMOTIDINE 20MG/2ML VIAL IV SCH (10:33)
[2022-02-01] MEDS: ENOXAPARIN 40MG/0.4ML SYR SUBCUT SCH (10:33)
[2022-02-01 10:41] LABS: CHLORIDE 116 mEq/L (98-107)
[2022-02-01] MEDS: INSULIN GLARGINE 100 UNITS/ML SUBCUT SCH ×2 (10:44→22:00)
[2022-02-01] MEDS: DESMOPRESSIN ACETATE 4MCG/ML AMP IV SCH ×2 (10:48→22:20)
[2022-02-01 10:52] LABS: PHOSPHORUS 2.6 mg/dL (2.5-4.9)
[2022-02-01] MEDS: TOTAL PARENTERAL NUTRITION 1,440 ML IV SCH (22:21)
[2022-02-02] VITALS (8 sets, daily range): BP systolic 140–167; BP diastolic 72–114
[2022-02-02] MEDS: INSULIN LISPRO 100 UNITS/ML SUBCUT SCH ×4 (05:14→23:40)
[2022-02-02] MEDS: BLOOD SUGAR DIAGNOSTIC STRIP TEST SCH ×4 (05:14→23:33)
[2022-02-02 06:49] LABS: BASOPHILS % 0.4 % (0.0-2.0); HEMATOCRIT. 31.5 % (36.0-48.0); HEMOGLOBIN. 10.2 g/dL (12.0-16.0); LYMPHOCYTES % 7.7 % (20.0-50.0); MEAN CORPUSCULAR HEMOGLOBIN 28.9 pg (28.0-32.0); MEAN CORPUSCULAR VOLUME 89.3 fL (81.0-99.0); MEAN PLATELET VOLUME 11.6 fl (7.4-10.4); MONOCYTES % 5.5 % (2.0-8.0); NEUTROPHILS % 85.4 % (40.0-76.0); PLATELET 93 x1000/uL (130-400); RED BLOOD CELL COUNT 3.52 mill/uL (4.2-5.4); RED CELL DISTRIBUTION WIDTH 18.5 % (11.6-14.6)
[2022-02-02 10:09] LABS: CHLORIDE 117 mEq/L (98-107)
[2022-02-02 10:20] LABS: CREATINE KINASE 73 IU/L (26-192)
[2022-02-02] MEDS: FAMOTIDINE 20MG/2ML VIAL IV SCH (10:28)
[2022-02-02] MEDS: ENOXAPARIN 40MG/0.4ML SYR SUBCUT SCH (10:29)
[2022-02-02] MEDS: INSULIN GLARGINE 100 UNITS/ML SUBCUT SCH ×2 (10:30→23:40)
[2022-02-02] MEDS: FAT EMULSIONS 250 ML IV SCH (21:11)
[2022-02-02] MEDS: TOTAL PARENTERAL NUTRITION 1,440 ML IV SCH (21:12)
[2022-02-03] VITALS (11 sets, daily range): BP systolic 115–148; BP diastolic 61–129
[2022-02-03] MEDS: BLOOD SUGAR DIAGNOSTIC STRIP TEST SCH ×4 (05:33→23:11)
[2022-02-03] MEDS: INSULIN LISPRO 100 UNITS/ML SUBCUT SCH ×4 (05:35→23:10)
[2022-02-03] MEDS: ENOXAPARIN 40MG/0.4ML SYR SUBCUT SCH (08:03)
[2022-02-03] MEDS: FAMOTIDINE 20MG/2ML VIAL IV SCH (08:11)
[2022-02-03 08:46] LABS: HEMATOCRIT. 37.3 % (36.0-48.0); HEMOGLOBIN. 11.8 g/dL (12.0-16.0); MEAN CORPUSCULAR HEMOGLOBIN 28.4 pg (28.0-32.0); MEAN CORPUSCULAR VOLUME 89.6 fL (81.0-99.0); MEAN PLATELET VOLUME 11.9 fl (7.4-10.4); PLATELET 131 x1000/uL (130-400); RED BLOOD CELL COUNT 4.16 mill/uL (4.2-5.4); RED CELL DISTRIBUTION WIDTH 19.5 % (11.6-14.6)
[2022-02-03] MEDS: INSULIN GLARGINE 100 UNITS/ML SUBCUT SCH ×2 (11:12→23:10)
[2022-02-03 18:27] LABS: PLATELET ESTIMATE NORMAL
[2022-02-03] MEDS: TOTAL PARENTERAL NUTRITION 1,440 ML IV SCH (21:06)
[2022-02-04] VITALS (10 sets, daily range): BP systolic 115–160; BP diastolic 59–86
[2022-02-04] MEDS: BLOOD SUGAR DIAGNOSTIC STRIP TEST SCH ×3 (05:07→17:13)
[2022-02-04] MEDS: INSULIN LISPRO 100 UNITS/ML SUBCUT SCH ×3 (05:09→17:18)
[2022-02-04] MEDS: FAMOTIDINE 20MG/2ML VIAL IV SCH (08:56)
[2022-02-04] MEDS: INSULIN GLARGINE 100 UNITS/ML SUBCUT SCH ×2 (08:57→21:44)
[2022-02-04] MEDS: ENOXAPARIN 40MG/0.4ML SYR SUBCUT SCH (08:57)
[2022-02-04 18:00] LABS: BASOPHILS % 0.3 % (0.0-2.0); EOSINOPHILS % 1.4 % (0.0-5.0); HEMOGLOBIN. 10.4 g/dL (12.0-16.0); LYMPHOCYTES % 8.8 % (20.0-50.0); MEAN CORPUSCULAR VOLUME 92.2 fL (81.0-99.0); MONOCYTES % 5.9 % (2.0-8.0); NEUTROPHILS % 83.6 % (40.0-76.0); PLATELET 95 x1000/uL (130-400); RED BLOOD CELL COUNT 3.58 mill/uL (4.2-5.4); RED CELL DISTRIBUTION WIDTH 20.4 % (11.6-14.6)
[2022-02-04 19:34] LABS: CHLORIDE 120 mEq/L (98-107)
[2022-02-04 19:41] LABS: CREATINE KINASE 59 IU/L (26-192)
[2022-02-05] VITALS (7 sets, daily range): BP systolic 130–159; BP diastolic 61–77
[2022-02-05] MEDS: BLOOD SUGAR DIAGNOSTIC STRIP TEST SCH ×4 (05:41→17:58)
[2022-02-05] MEDS: INSULIN LISPRO 100 UNITS/ML SUBCUT SCH ×4 (05:41→17:57)
[2022-02-05] MEDS: DEXTROSE 50% WATER 50ML SYRINGE IV PRN (05:44)
[2022-02-05] MEDS: INSULIN GLARGINE 100 UNITS/ML SUBCUT SCH ×2 (10:00→22:00)
[2022-02-05] MEDS: ENOXAPARIN 40MG/0.4ML SYR SUBCUT SCH (10:15)
[2022-02-05] MEDS: FAMOTIDINE 20MG/2ML VIAL IV SCH (10:15)
[2022-02-05 17:34] LABS: BASOPHILS % 0.3 % (0.0-2.0); EOSINOPHILS % 2.1 % (0.0-5.0); HEMATOCRIT. 33.1 % (36.0-48.0); HEMOGLOBIN. 10.5 g/dL (12.0-16.0); LYMPHOCYTES % 9.2 % (20.0-50.0); MEAN CORPUSCULAR HEMOGLOBIN 28.8 pg (28.0-32.0); MEAN PLATELET VOLUME 11.2 fl (7.4-10.4); MONOCYTES % 6.9 % (2.0-8.0); NEUTROPHILS % 81.5 % (40.0-76.0); PLATELET 119 x1000/uL (130-400); RED BLOOD CELL COUNT 3.64 mill/uL (4.2-5.4); RED CELL DISTRIBUTION WIDTH 20.2 % (11.6-14.6)
[2022-02-05 17:45] LABS: CHLORIDE 117 mEq/L (98-107)
[2022-02-06] VITALS: BP 119/60
[2022-02-06 04:00] VITALS: BP 111/67
[2022-02-06] MEDS: BLOOD SUGAR DIAGNOSTIC STRIP TEST SCH ×4 (05:42→17:10)
[2022-02-06] MEDS: INSULIN LISPRO 100 UNITS/ML SUBCUT SCH ×4 (05:42→17:24)
[2022-02-06 07:39] LABS: BASOPHILS % 0.8 % (0.0-2.0); HEMATOCRIT. 32.8 % (36.0-48.0); HEMOGLOBIN. 10.7 g/dL (12.0-16.0); LYMPHOCYTES % 11.2 % (20.0-50.0); MEAN CORPUSCULAR HEMOGLOBIN 29.3 pg (28.0-32.0); MEAN CORPUSCULAR VOLUME 90.3 fL (81.0-99.0); MEAN PLATELET VOLUME 11.7 fl (7.4-10.4); MONOCYTES % 7.1 % (2.0-8.0); NEUTROPHILS % 77.9 % (40.0-76.0); PLATELET 127 x1000/uL (130-400); RED BLOOD CELL COUNT 3.64 mill/uL (4.2-5.4); RED CELL DISTRIBUTION WIDTH 20.1 % (11.6-14.6)
[2022-02-06 07:40] LABS: CHLORIDE 115 mEq/L (98-107)
[2022-02-06 08:00] VITALS: BP 155/83
[2022-02-06] MEDS ORDERED: POTASSIUM CHLORIDE 20MEQ/PACKET PO SCH (09:00)
[2022-02-06] MEDS: INSULIN GLARGINE 100 UNITS/ML SUBCUT SCH ×2 (09:00→21:48)
[2022-02-06] MEDS: FAMOTIDINE 20MG/2ML VIAL IV SCH (09:15)
[2022-02-06] MEDS: ENOXAPARIN 40MG/0.4ML SYR SUBCUT SCH (09:15)
[2022-02-06 12:00] VITALS: BP 156/93
[2022-02-06 16:00] VITALS: BP 135/79
[2022-02-06] MEDS ORDERED: MAGNESIUM 1 G PREMIX 100 ML IV NR (16:30)
[2022-02-06] MEDS ORDERED: POTASSIUM PHOS,M-BASIC-D-BASIC 10 MMOL in DEXT 5% WATER 246.6667 ML IV ONE (17:00)
[2022-02-06 20:00] VITALS: BP 147/74
[2022-02-07] VITALS: BP 144/82
[2022-02-07] MEDS: INSULIN LISPRO 100 UNITS/ML SUBCUT SCH ×5 (01:01→23:44)
[2022-02-07 04:00] VITALS: BP 122/64
[2022-02-07] MEDS: BLOOD SUGAR DIAGNOSTIC STRIP TEST SCH ×5 (05:58→23:44)
[2022-02-07 06:46] LABS: BASOPHILS % 0.4 % (0.0-2.0); EOSINOPHILS % 2.9 % (0.0-5.0); HEMATOCRIT. 31.6 % (36.0-48.0); HEMOGLOBIN. 10.3 g/dL (12.0-16.0); LYMPHOCYTES % 12.9 % (20.0-50.0); MEAN CORPUSCULAR HEMOGLOBIN 29.5 pg (28.0-32.0); MEAN CORPUSCULAR VOLUME 90.6 fL (81.0-99.0); MEAN PLATELET VOLUME 11.1 fl (7.4-10.4); MONOCYTES % 7.1 % (2.0-8.0); NEUTROPHILS % 76.7 % (40.0-76.0); PLATELET 133 x1000/uL (130-400); RED BLOOD CELL COUNT 3.49 mill/uL (4.2-5.4)
[2022-02-07 08:00] VITALS: BP 146/75
[2022-02-07 08:40] LABS: CHLORIDE 112 mEq/L (98-107)
[2022-02-07] MEDS: FAMOTIDINE 20MG/2ML VIAL IV SCH (09:50)
[2022-02-07] MEDS: ENOXAPARIN 40MG/0.4ML SYR SUBCUT SCH (09:51)
[2022-02-07] MEDS: INSULIN GLARGINE 100 UNITS/ML SUBCUT SCH ×2 (10:09→21:58)
[2022-02-07] MEDS ORDERED: POTASSIUM CHLORIDE 20MEQ/PACKET PO NR (19:45)
[2022-02-07 20:00] VITALS: BP 135/72
[2022-02-08] VITALS: BP 139/63
[2022-02-08 04:00] VITALS: BP 144/85
[2022-02-08] MEDS: INSULIN LISPRO 100 UNITS/ML SUBCUT SCH ×3 (06:00→18:00)
[2022-02-08] MEDS: BLOOD SUGAR DIAGNOSTIC STRIP TEST SCH ×3 (06:45→18:00)
[2022-02-08 07:12] LABS: BASOPHILS % 0.5 % (0.0-2.0); EOSINOPHILS % 3.6 % (0.0-5.0); HEMATOCRIT. 33.5 % (36.0-48.0); HEMOGLOBIN. 10.6 g/dL (12.0-16.0); LYMPHOCYTES % 17.2 % (20.0-50.0); MEAN CORPUSCULAR HEMOGLOBIN 29.8 pg (28.0-32.0); MEAN CORPUSCULAR VOLUME 93.9 fL (81.0-99.0); MEAN PLATELET VOLUME 11.3 fl (7.4-10.4); MONOCYTES % 8.4 % (2.0-8.0); NEUTROPHILS % 70.3 % (40.0-76.0); PLATELET 146 x1000/uL (130-400); RED BLOOD CELL COUNT 3.57 mill/uL (4.2-5.4); RED CELL DISTRIBUTION WIDTH 20.5 % (11.6-14.6)
[2022-02-08] MEDS: INSULIN GLARGINE 100 UNITS/ML SUBCUT SCH (07:39)
[2022-02-08 07:49] LABS: CHLORIDE 111 mEq/L (98-107)
[2022-02-08 08:00] VITALS: BP 151/90
[2022-02-08] MEDS ORDERED: POTASSIUM CHLORIDE 20MEQ/PACKET PO SCH (08:00)
[2022-02-08 08:02] LABS: CREATINE KINASE 138 IU/L (26-192)
[2022-02-08] MEDS: ENOXAPARIN 40MG/0.4ML SYR SUBCUT SCH (09:31)
[2022-02-08] MEDS: FAMOTIDINE 20MG/2ML VIAL IV SCH (09:31)
[2022-02-08 12:00] VITALS: BP 171/91
[2022-02-08 16:00] VITALS: BP 171/91
[2022-02-08 20:00] VITALS: BP 155/85
[2022-02-09] VITALS (7 sets, daily range): BP systolic 121–152; BP diastolic 69–90
[2022-02-09] MEDS: DEXTROSE 50% WATER 50ML SYRINGE IV PRN ×2 (01:39→06:13)
[2022-02-09] MEDS: INSULIN LISPRO 100 UNITS/ML SUBCUT SCH ×5 (06:00→23:58)
[2022-02-09] MEDS: BLOOD SUGAR DIAGNOSTIC STRIP TEST SCH ×3 (06:13→11:47)
[2022-02-09 07:13] LABS: BASOPHILS % 0.3 % (0.0-2.0); EOSINOPHILS % 2.4 % (0.0-5.0); HEMATOCRIT. 31.1 % (36.0-48.0); HEMOGLOBIN. 10.1 g/dL (12.0-16.0); LYMPHOCYTES % 12.6 % (20.0-50.0); MEAN CORPUSCULAR HEMOGLOBIN 29.1 pg (28.0-32.0); MEAN CORPUSCULAR VOLUME 90.2 fL (81.0-99.0); MEAN PLATELET VOLUME 11.1 fl (7.4-10.4); MONOCYTES % 7.4 % (2.0-8.0); NEUTROPHILS % 77.3 % (40.0-76.0); PLATELET 178 x1000/uL (130-400); RED BLOOD CELL COUNT 3.45 mill/uL (4.2-5.4); RED CELL DISTRIBUTION WIDTH 20.1 % (11.6-14.6)
[2022-02-09] MEDS: FAMOTIDINE 20MG/2ML VIAL IV SCH (09:01)
[2022-02-09] MEDS: ENOXAPARIN 40MG/0.4ML SYR SUBCUT SCH (09:02)
[2022-02-10] VITALS: BP 138/63
[2022-02-10 04:00] VITALS: BP 148/52
[2022-02-10] MEDS: INSULIN LISPRO 100 UNITS/ML SUBCUT SCH ×2 (06:00→08:31)
[2022-02-10 07:03] LABS: BASOPHILS % 0.5 % (0.0-2.0); HEMATOCRIT. 35.1 % (36.0-48.0); HEMOGLOBIN. 11.3 g/dL (12.0-16.0); LYMPHOCYTES % 17.3 % (20.0-50.0); MEAN CORPUSCULAR HEMOGLOBIN 29.6 pg (28.0-32.0); MEAN CORPUSCULAR VOLUME 92.3 fL (81.0-99.0); MEAN PLATELET VOLUME 10.4 fl (7.4-10.4); MONOCYTES % 7.6 % (2.0-8.0); NEUTROPHILS % 72.6 % (40.0-76.0); PLATELET 167 x1000/uL (130-400); RED BLOOD CELL COUNT 3.81 mill/uL (4.2-5.4); RED CELL DISTRIBUTION WIDTH 20.6 % (11.6-14.6)
[2022-02-10] MEDS: ENOXAPARIN 40MG/0.4ML SYR SUBCUT SCH (08:31)
[2022-02-10] MEDS ORDERED: FAMOTIDINE 20MG TABLET PO SCH (09:00)
[2022-02-10 09:38] LABS: CHLORIDE 109 mEq/L (98-107)
[2022-02-10 13:07] LABS: SACCHAROMYCES CEREVISIAE IGG 26.2 Units (0.0-24.9)
[2022-02-10 16:04] LABS: CHLORIDE 107 mEq/L (98-107)
[2022-02-11 13:10] LABS: ATYPICAL pANCA <1:20 titer (Neg:<1:20)
== END 2022-02-10 09:00 | disposition left against medical advice (07) | DRG 871 ==
LOC: ER 21:04 → 8WST 01-12 04:16 → EDBEDREQTM 01-12 04:21 → EDBEDREQ 01-12 04:21 → EDBEDREQSVC 01-12 04:34 → 5EST 01-19 17:36
PROVIDERS: ADMIT Internal Medicine; ATTEND Internal Medicine
PROC: B54MZZA Ultrasonography of Right Upper Extremity Veins, Guidance (ICD-10-PCS; 2022-01-14)
PROC: 05HY33Z Insertion of Infusion Device into Upper Vein, Percutaneous Approach (ICD-10-PCS; 2022-01-14)
PROC: 02HV33Z Insertion of Infusion Device into Superior Vena Cava, Percutaneous Approach (ICD-10-PCS; 2022-01-17)
PROC: B548ZZA Ultrasonography of Superior Vena Cava, Guidance (ICD-10-PCS; 2022-01-17)
PROC: B5181ZA Fluoroscopy of Superior Vena Cava using Low Osmolar Contrast, Guidance (ICD-10-PCS; 2022-01-17)
PROC: 4A00X4Z Measurement of Central Nervous Electrical Activity, External Approach (ICD-10-PCS; principal; 2022-01-21)
PROC: 02HV33Z Insertion of Infusion Device into Superior Vena Cava, Percutaneous Approach (ICD-10-PCS; 2022-02-04)
DX: A41.9 Sepsis, unspecified organism (principal); G92.8 Other toxic encephalopathy; J96.01 Acute respiratory failure with hypoxia; N17.0 Acute kidney failure with tubular necrosis; J69.0 Pneumonitis due to inhalation of food and vomit; E87.1 Hypo-osmolality and hyponatremia; E46 Unspecified protein-calorie malnutrition; E87.0 Hyperosmolality and hypernatremia; I50.30 Unspecified diastolic (congestive) heart failure; K57.32 Diverticulitis of large intestine without perforation or abscess without bleeding; K55.9 Vascular disorder of intestine, unspecified; I67.82 Cerebral ischemia; R18.8 Other ascites; E11.65 Type 2 diabetes mellitus with hyperglycemia; E87.6 Hypokalemia; N81.10 Cystocele, unspecified; F17.200 Nicotine dependence, unspecified, uncomplicated; I25.10 Atherosclerotic heart disease of native coronary artery without angina pectoris; Z96.642 Presence of left artificial hip joint; K64.4 Residual hemorrhoidal skin tags; R65.20 Severe sepsis without septic shock; J44.9 Chronic obstructive pulmonary disease, unspecified; Z20.822 Contact with and (suspected) exposure to COVID-19; D64.9 Anemia, unspecified; I73.9 Peripheral vascular disease, unspecified; E83.39 Other disorders of phosphorus metabolism; D69.6 Thrombocytopenia, unspecified; E83.42 Hypomagnesemia; F03.90 Unspecified dementia, unspecified severity, without behavioral disturbance, psychotic disturbance, mood disturbance, and anxiety; I11.0 Hypertensive heart disease with heart failure; Z79.84 Long term (current) use of oral hypoglycemic drugs; Z88.8 Allergy status to other drugs, medicaments and biological substances; Z68.28 Body mass index [BMI] 28.0-28.9, adult; Z79.899 Other long term (current) drug therapy
CPT/HCPCS: 36415; 36573; 36600; 70551; 71045; 74018; 74176; 76770; 78580; 80048; 80053; 81003; 82040; 82140; 82375; 82378; 82465; 82550; 82565; 82728; 82805; 82962; 83036; 83540; 83550; 83605; 83735; 83880; 84100; 84132; 84145; 84478; 84484; 85025; 85379; 85651; 86038; 86160; 86256; 86301; 86671; 86850; 86900; 87015; 87045; 87177; 87209; 87426; 87427; 87449; 87493; 89055; 92610; 93005; 93306; 93970; 94640; 95816; 97110; 97112; 97162; 97167; 97530; 99291; A6261; C1725; C1893; C9113; J0692; J1170; J1650; J1815; J2270; J2405; J2543; J2597; J3411; J3475; J3480; J3490; J7030; J7040; J7060; J7070; A4315